=== PATIENT | female | born 1970 | race Caucasian/White ===

== ENCOUNTER 2023-08-19 08:19 | Outpatient (CLI) | payer BC, SELFPAY | END 2023-08-19 08:20 | disposition home or self-care (01) | PROVIDERS: PCP Emergency Medicine; Visit Provider Emergency Medicine | DX: Z00.00 Encounter for general adult medical examination without abnormal findings (principal); I10 Essential (primary) hypertension; Z13.6 Encounter for screening for cardiovascular disorders | CPT/HCPCS: 80048; 80061 ==

== ENCOUNTER 2023-11-19 08:54 | Outpatient (CLI) | payer BC, SELFPAY ==
--- NOTE | 2023-11-19 09:15 | MM_ITS ---
Patient: IFRAH DEY Facility:?[facility] Patient ID:?[id number] Site Patient ID:?[id number] Site :?[id number] Study:?XRay-Breast Bilateral 3D W/CAD-11/19/2023 9:31:43 AM Ordering Physician:?Patience Damon Final Report: BILATERAL SCREENING MAMMOGRAM WITH COMPUTER-AIDED DETECTION AND TOMOSYNTHESIS TECHNIQUE: CC and MLO views were obtained. These mammographic images have been obtained using full-field digital technique. These mammographic images were interpreted with the benefit of computer-aided detection. Breast Tomosynthesis was used in this interpretation. COMPARISON FILM: Baseline. FINDINGS: There are scattered areas of fibroglandular density. IMPRESSION: There is no radiographic evidence for malignancy. ASSESSMENT: BI-RADS Category 2: Benign RECOMMENDATION: Routine screening mammogram in 1 year. A lay language report of this examination will be provided to the patient. Tavo Bhakta M.D. Diagnostic Radiologist [email or web address] DSM/sp R& Transcribed: 5:55 p.m. SP/Dictated by: Tavo Bhakta MD @ 11/19/2023 10:23:00 AM Signed by:?Tavo Bhakta MD @11/20/2023 5:42:54 AM (Electronic Signature)
== END 2023-11-19 08:55 | disposition home or self-care (01) ==
PROVIDERS: PCP Emergency Medicine; Visit Provider Emergency Medicine
DX: Z12.31 Encounter for screening mammogram for malignant neoplasm of breast (principal)
CPT/HCPCS: 77063; 77067

== ENCOUNTER 2024-12-02 11:19 | Outpatient (CLI) | payer BC, SELFPAY ==
--- NOTE | 2024-12-02 11:30 | CRLHL7_ITS ---
For Patients: As a result of the Century Cures Act, medical imaging exams and procedure reports are released immediately into your electronic medical record. You may view this report before your referring provider. If you have questions, please contact your health care provider. BILATERAL SCREENING MAMMOGRAM WITH COMPUTER-AIDED DETECTION AND TOMOSYNTHESIS TECHNIQUE: CC and MLO views were obtained. These mammographic images have been obtained using full-field digital technique. These mammographic images were interpreted with the benefit of computer-aided detection. Breast Tomosynthesis was used in this interpretation. COMPARISON FILM: 11/19/23. FINDINGS: There are scattered areas of fibroglandular density. IMPRESSION: There is no radiographic evidence for malignancy. ASSESSMENT: BI-RADS Category 1: Negative RECOMMENDATION: Routine screening mammogram in 1 year. A lay language report of this examination will be provided to the patient. Tavo Bhakta M.D. Diagnostic Radiologist [email or web address] SP/Dictated by: Tavo Bhakta MD @ 12/02/2024 1:27:00 PM (Electronically Signed)
== END 2024-12-02 11:20 | disposition home or self-care (01) ==
LOC: MAMMO 11:21
PROVIDERS: PCP Emergency Medicine; Visit Provider Emergency Medicine
DX: Z12.31 Encounter for screening mammogram for malignant neoplasm of breast (principal)
CPT/HCPCS: 77063; 77067

== ENCOUNTER 2024-12-13 08:38 | Outpatient (CLI) | payer BC, SELFPAY | END 2024-12-13 08:39 | disposition home or self-care (01) | PROVIDERS: PCP Emergency Medicine; Visit Provider Emergency Medicine | DX: E78.5 Hyperlipidemia, unspecified (principal); I10 Essential (primary) hypertension | CPT/HCPCS: 80053; 80061 ==

== ENCOUNTER 2024-12-22 08:29 | Outpatient (CLI) | payer BC, SELFPAY | END 2024-12-22 08:30 | disposition home or self-care (01) | LOC: LKVREF 08:30 | PROVIDERS: PCP Emergency Medicine; Visit Provider Emergency Medicine | DX: E11.9 Type 2 diabetes mellitus without complications (principal); Z79.84 Long term (current) use of oral hypoglycemic drugs | CPT/HCPCS: 82043; 82570 ==

== ENCOUNTER 2025-02-02 10:40 | Outpatient (CLI) | payer BC, SELFPAY | END 2025-02-02 10:41 | disposition home or self-care (01) | LOC: NFLDREF 02-04 07:31 | PROVIDERS: PCP Emergency Medicine; Referring Provider Emergency Medicine; Visit Provider Emergency Medicine | DX: R82.90 Unspecified abnormal findings in urine (principal) | CPT/HCPCS: 87086 ==

== ENCOUNTER 2025-06-30 08:11 | Outpatient (CLI) | payer BC, SELFPAY | END 2025-06-30 08:12 | disposition home or self-care (01) | LOC: NFLDREF 07-02 19:05 | PROVIDERS: Visit Provider Emergency Medicine | DX: E78.2 Mixed hyperlipidemia (principal) | CPT/HCPCS: 80061 ==